=== PATIENT | female | born 1955 | race Caucasian/White ===

== ENCOUNTER 2018-10-14 16:51 | Emergency (ER) | payer OTHER ==
[2018-10-14] MEDS ORDERED: Potassium Chloride 20 MEQ Tab.ER PO ONE (18:30)
[2018-10-14] MEDS ORDERED: Lactated Ringers 1,000 ML IV SCH (18:30)
[2018-10-14] MEDS ORDERED: Alum Hydrox/Mag Hydrox/Simeth 30 ML, Lidocaine 2% 15 ML PO ONE ×2 (18:53)
--- NOTE | 2018-10-14 19:03 | EDM.PDOC ---
ED HPI GENERAL MEDICAL PROBLEM - General Chief Complaint: Abdominal Pain Stated Complaint: FEVER/ABDOMINAL PAIN Time Seen by Provider: 10/14/18 17:40 Source of Information: Reports: Patient History Limitations: Reports: No Limitations - History of Present Illness INITIAL COMMENTS - FREE TEXT/NARRATIVE: 63 yo F comes in today for epigastric pain off and on x 2 weeks and new development of low grade fever of 100.8 last night. She states she has never had anything like this before. She describes the pain as "50 lb pressure drilling into the back". She was seen in the ED yesterday in [place] for these same symptoms (no fever yet) where CT abdomen was negative for anything acute, cardiac workup was benign, labs were WNL and nothing acute was found. She does have a h/o Josh Fundoplication back in the late and has chronic acid reflux issues. She does have h/o cholecystectomy and appendectomy. She takes Nexium and recently increased dose to BID and PCP added Carafate with no relief. Her last endoscopy was 5 years ago. She denies any sick contacts. She has no other complaints at this time. 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 She recently went to [facility] for emergency preparedness education and denied eating any new or strange foods (sticks to embassy food), drinking unfiltered water, etc. She was on Malarone until 10/22/18. PCP is Dr. Marixa Cummings. She sees general surgeon Dr. Bennett in [place]. Upper Abdomen Pain Score (Numeric/FACES): 6 - Related Data Allergies Allergy/AdvReac Type Severity Reaction Status Date / Time acetaminophen [From Percocet] Allergy Hives Verified 10/14/18 17:22 cisapride [From Propulsid] Allergy Hives Verified 10/14/18 17:22 codeine Allergy Hives Verified 10/14/18 17:22 erythromycin base Allergy Hives Verified 10/14/18 17:22 Iodinated Contrast- Oral and Allergy Hives Verified 10/14/18 17:22 IV Dye nut - unspecified Allergy Hives Verified 10/14/18 17:22 oxycodone [From Percocet] Allergy Hives Verified 10/14/18 17:22 Penicillins Allergy Hives Verified 10/14/18 17:22 shellfish derived Allergy Anaphylactic Verified 10/14/18 17:22 Shock strawberry Allergy Hives Verified 10/14/18 17:22 Sulfa (Sulfonamide Allergy Hives Verified 10/14/18 17:22 Antibiotics) sulfur dioxide Allergy Hives Verified 05/11/18 22:28 Home Meds: Home Meds Albuterol Sulfate [Proair Hfa] 8.5 gm IH DAILY 05/11/18 [History] Aspirin [Halfprin] 81 mg PO DAILY 05/11/18 [History] Cholecalciferol (Vitamin D3) [Vitamin D3] 2,000 unit PO DAILY 05/11/18 [History] Escitalopram [Lexapro] 10 mg PO DAILY 05/11/18 [History] Esomeprazole [NexIUM] 40 mg PO BID 05/11/18 [History] Fluticasone/Salmeterol [Advair 100-50] 1 puff INH DAILY 05/11/18 [History] Metoprolol Succinate [Toprol XL] 1 tab PO DAILY 05/11/18 [History] Montelukast Sodium [Singulair] 5 mg PO DAILY 05/11/18 [History] Rosuvastatin [Crestor] 5 mg PO DAILY 05/11/18 [History] diphenhydrAMINE [Benadryl] 1 tab PO Q6HR PRN 05/11/18 [History] Cyclobenzaprine [Flexeril] 5 mg PO Q8HR PRN 10/14/18 [History] Sucralfate [Carafate] 1 dose PO QID 10/14/18 [History] Past Medical History HEENT History: Reports: Impaired Vision Cardiovascular History: Reports: Arrhythmia Respiratory History: Reports: Asthma Musculoskeletal History: Reports: Back Pain, Chronic Psychiatric History: Reports: Anxiety Social & Family History - Tobacco Use Smoking Status *Q: Never Smoker - Caffeine Use Caffeine Use: Reports: Soda - Recreational Drug Use Recreational Drug Use: No ED ROS GENERAL - Review of Systems Review Of Systems: ROS reveals no pertinent complaints other than HPI. ED EXAM, GI/ABD - Physical Exam Exam: See Below Exam Limited By: No Limitations General Appearance: Alert, WD/WN, No Apparent Distress Eyes: Bilateral: Normal Appearance, EOMI Ears: Normal External Exam, Hearing Grossly Normal Nose: Normal Inspection, Normal Mucosa, No Blood Throat/Mouth: Normal Inspection, Normal Lips, Normal Teeth, Normal Gums, Normal Oropharynx, Normal Voice, No Airway Compromise Head: Atraumatic, Normocephalic Neck: Normal Inspection, Supple, Non-Tender, Full Range of Motion Respiratory/Chest: No Respiratory Distress, Lungs Clear, Normal Breath Sounds, No Accessory Muscle Use, Chest Non-Tender Cardiovascular: Normal Peripheral Pulses, Regular Rate, Rhythm, No Edema, No Gallop, No JVD, No Murmur, No Rub GI/Abdominal Exam: Soft, Non-Tender, No Organomegaly, No Distention, No Abnormal Bruit, No Mass, Pelvis Stable, Abnormal Bowel Sounds (hyperactive) Back Exam: Normal Inspection Extremities: Normal Inspection, Normal Range of Motion, Non-Tender, Normal Capillary Refill, No Pedal Edema Psychiatric: Normal Affect, Normal Mood Skin Exam: Warm, Dry, Intact, Normal Color, No Rash Course - Vital Signs Last Recorded V/S: Last Vital Signs Temp 99.0 F 10/14/18 17:22 Pulse 98 10/14/18 17:22 Resp 12 10/14/18 17:22 BP 146/47 H 10/14/18 17:22 Pulse Ox 100 10/14/18 17:22 - Orders/Labs/Meds Orders: Active Orders 24 hr Category Date Time Status EKG Documentation Completion [RC] ASDIRECTED Care 10/14/18 18:36 Active CULTURE BLOOD [BC] Stat Lab 10/14/18 17:42 Received CULTURE BLOOD [BC] Stat Lab 10/14/18 17:48 Received Lactated Ringers [Ringers, Lactated] 1,000 ml Med 10/14/18 18:30 Active IV ASDIRECTED Blood Culture x2 Reflex Set [OM.PC] Stat Oth 10/14/18 17:29 Ordered EKG 12 Lead [EK] Stat Ther 10/14/18 18:36 Ordered Medication Orders Lactated Ringer's (Ringers, Lactated) 1,000 mls @ 999 mls/hr IV ASDIRECTED DEONNA Last Admin: 10/14/18 18:43 Dose: 999 mls/hr Labs: Laboratory Tests 10/14/18 10/14/18 10/14/18 Range/Units 17:42 17:42 17:42 WBC 4.16 (3.98-10.04) K/mm3 RBC 4.27 (3.98-5.22) M/mm3 Hgb 12.7 (11.2-15.7) gm/L Hct 39.4 (34.1-44.9) % MCV 92.3 (79.4-94.8) fl MCH 29.7 (25.6-32.2) pg MCHC 32.2 (32.2-35.5) g/dl RDW Std Deviation 44.5 (36.4-46.3) fL Plt Count 223 (182-369) K/mm3 MPV 9.7 (9.4-12.3) fl Neut % (Auto) 66.5 (34.0-71.1) % Lymph % (Auto) 18.8 L (19.3-51.7) % Gilchrist % (Auto) 13.5 H (4.7-12.5) % Eos % (Auto) 1.0 (0.7-5.8) Baso % (Auto) 0.2 (0.1-1.2) % Neut # (Auto) 2.77 (1.56-6.13) K/mm3 Lymph # (Auto) 0.78 L (1.18-3.74) K/mm3 Gilchrist # (Auto) 0.56 H (0.24-0.36) K/mm3 Eos # (Auto) 0.04 (0.04-0.36) K/mm3 Baso # (Auto) 0.01 (0.01-0.08) K/mm3 Sodium 140 (136-145) mEq/L Potassium 3.0 L (3.5-5.1) mEq/L Chloride 104 (98-107) mEq/L Carbon Dioxide 29 (21-32) mEq/L Anion Gap 10.0 (5-15) BUN 5 L (7-18) mg/dL Creatinine 1.0 (0.55-1.02) mg/dL Est Cr Clr Drug Dosing 50.37 mL/min Estimated GFR (MDRD) 56 (>60) mL/min BUN/Creatinine Ratio 5.0 L (14-18) Glucose 114 (80-115) mg/dL Lactic Acid 1.3 (0.4-2.0) mmol/L Calcium 8.7 (8.5-10.1) mg/dL Total Bilirubin 0.1 L (0.2-1.0) mg/dL AST 28 (15-37) U/L ALT 47 (14-59) U/L Alkaline Phosphatase 134 H (46-116) U/L C-Reactive Protein 3.1 H* (<1.0) mg/dL Total Protein 6.6 (6.4-8.2) g/dl Albumin 3.2 L (3.4-5.0) g/dl Globulin 3.4 gm/dL Albumin/Globulin Ratio 0.9 L (1-2) Meds: Medications Generic Name Dose Route Start Last Admin Trade Name Freq PRN Reason Stop Dose Admin Lactated Ringer's 1,000 mls @ 999 mls/hr 10/14/18 18:30 10/14/18 18:43 Ringers, Lactated IV 999 mls/hr ASDIRECTED DEONNA Administration Discontinued Medications Generic Name Dose Route Start Last Admin Trade Name Freq PRN Reason Stop Dose Admin Potassium Chloride 40 meq 10/14/18 18:30 10/14/18 18:44 Klor-Con M20 PO 10/14/18 18:31 40 meq ONETIME ONE Administration - Re-Assessments/Exams Free Text/Narrative Re-Assessment/Exam: 10/14/18 17:42 CBC, CMP, CRP, LA, Blood cultures ordered 10/14/18 18:36 EKG ordered CBC WNL CMP shows K 3, Alk Phos 134 CRP 3.1 LA 1.3 She also looks dry on exam. Will start IV Lactated Ringers and give oral Potassium replacement. 10/14/18 19:08 EKG reviewed my myself and Dr. Salazar, WNL. At this time, there doesn't seem to be an infectious process happening or acute emergency. It seems reasonable at this time to go ahead and send the pt home and have her f/u with PCP and GI or General Surgeon for endoscopy. Pt agrees with this plan. Departure - Departure Time of Disposition: 19:11 Disposition: Home, Self-Care 01 Condition: Fair Clinical Impression: Abdominal pain, Low grade fever, Hypokalemia - Discharge Information *PRESCRIPTION DRUG MONITORING PROGRAM REVIEWED*: Not Applicable *COPY OF PRESCRIPTION DRUG MONITORING REPORT IN PATIENT OLIVER: Not Applicable Instructions: Abdominal Pain, Adult, [id number], Fever, Adult, [id number] Referrals: Marixa Cummings MD [Primary Care Provider] - Additional Instructions: You were seen in the ED today for abdominal pain x 2 weeks with new onset low grade fever. Your labs and EKG were unremarkable except for low potassium. Do not suspect infection or emergent condition at this time. You were given IV fluids and potassium replacement while here. Also recommend staying hydrated at home with water, gatorade or pedialyte. Continue taking your Nexium and carafate and staying on a bland diet. Recommend follow up with your primary care provider and suggest seeing a GI specialist or your general surgeron Dr. Bennett for endoscopy to rule out any ulcer. Please return to ED if new or worsening symptoms. - My Orders Last 24 Hours: My Active Orders 10/14/18 18:30 Lactated Ringers [Ringers, Lactated] 1,000 ml IV ASDIRECTED 10/14/18 18:36 EKG Documentation Completion [RC] ASDIRECTED EKG 12 Lead [EK] Stat - Assessment/Plan Last 24 Hours: My Active Orders 10/14/18 18:30 Lactated Ringers [Ringers, Lactated] 1,000 ml IV ASDIRECTED 10/14/18 18:36 EKG Documentation Completion [RC] ASDIRECTED EKG 12 Lead [EK] Stat
== END 2018-10-14 19:28 | disposition home or self-care (01) ==
LOC: JD.ED 16:51
DX: R10.10 Upper abdominal pain, unspecified (principal); R50.9 Fever, unspecified; E87.6 Hypokalemia; Z88.8 Allergy status to other drugs, medicaments and biological substances; Z88.2 Allergy status to sulfonamides; Z91.018 Allergy to other foods; Z79.82 Long term (current) use of aspirin; Z79.899 Other long term (current) drug therapy
CPT/HCPCS: 36415; 80053; 83605; 85025; 86140; 87040; 93005; 96360; 99284; A9270; J7120; 93010

== ENCOUNTER 2022-01-18 03:05 | Emergency (ER) | payer OTHER ==
[2022-01-18] MEDS ORDERED: Sodium Chloride 0.9% 1,000 ML IV ONE (04:15)
[2022-01-18] MEDS ORDERED: Metoclopramide 10 MG/2 ML SDV IVPUSH STA (04:15)
[2022-01-18 05:03] LABS: ESTIMATED GFR 63 mL/min (>60)
== END 2022-01-18 06:53 | disposition home or self-care (01) ==
LOC: JD.ED 03:05
DX: R11.2 Nausea with vomiting, unspecified (principal); E78.00 Pure hypercholesterolemia, unspecified; K21.9 Gastro-esophageal reflux disease without esophagitis; Z91.041 Radiographic dye allergy status; Z91.018 Allergy to other foods; Z88.2 Allergy status to sulfonamides; Z88.0 Allergy status to penicillin; Z88.5 Allergy status to narcotic agent; Z88.8 Allergy status to other drugs, medicaments and biological substances; Z79.82 Long term (current) use of aspirin; Z79.899 Other long term (current) drug therapy
CPT/HCPCS: 36415; 80053; 83735; 85025; 96361; 96374; 99284; J2765; J7030; 99283

== ENCOUNTER 2022-05-25 01:30 | Emergency (ER) | payer OTHER ==
[2022-05-25] MEDS ORDERED: Ondansetron 4 MG Tab.DIS PO ONE (02:44)
== END 2022-05-25 03:04 | disposition home or self-care (01) ==
LOC: JD.ED 01:30
DX: H81.10 Benign paroxysmal vertigo, unspecified ear (principal); J45.909 Unspecified asthma, uncomplicated; E78.00 Pure hypercholesterolemia, unspecified; Z88.6 Allergy status to analgesic agent; Z88.5 Allergy status to narcotic agent; Z88.1 Allergy status to other antibiotic agents; Z91.041 Radiographic dye allergy status; Z91.018 Allergy to other foods; Z88.0 Allergy status to penicillin; Z91.013 Allergy to seafood; Z88.2 Allergy status to sulfonamides; Z79.899 Other long term (current) drug therapy; Z79.82 Long term (current) use of aspirin; Z90.49 Acquired absence of other specified parts of digestive tract; Z90.710 Acquired absence of both cervix and uterus
CPT/HCPCS: 93005; 99284; A9270

== ENCOUNTER 2024-03-08 04:56 | Emergency (ER) | payer OTHER ==
[2024-03-08 06:07] LABS: BASOPHILS ABSOLUTE AUTO 0.1 K/mm3 (0.0-0.2); BASOPHILS PERCENT AUTO 1.2 % (0.0-1.0); EOSINOPHILS ABSOLUTE AUTO 0.3 K/mm3 (0.0-0.4); EOSINOPHILS PERCENT AUTO 5.2 % (0.0-6.0); HEMATOCRIT 40.4 % (37.0-47.0); HEMOGLOBIN 13.8 gm/dl (12.0-16.0); IMMATURE GRAN ABSOLUTE AUTO 0.01 K/mm3 (0.00-0.05); IMMATURE GRAN PERCENT AUTO 0.2 % (0.0-0.4); LYMPHOCYTES ABSOLUTE AUTO 1.7 K/mm3 (1.0-4.8); LYMPHOCYTES PERCENT AUTO 31.9 % (24.0-44.0); MEAN CORPUSCULAR HEMOGLOBIN 32.3 pg (28.0-32.0); MEAN CORPUSCULAR HGB CONC 34.2 g/dl (32.0-36.0); MEAN CORPUSCULAR VOLUME 94.6 fl (83.0-99.0); MONOCYTES ABSOLUTE AUTO 0.5 K/mm3 (0.0-0.8); MONOCYTES PERCENT AUTO 9.7 % (0.0-8.0); NEUTROPHILS ABSOLUTE AUTO 2.7 K/mm3 (1.8-7.7); NEUTROPHILS PERCENT AUTO 51.8 % (41.0-71.0); PLATELET COUNT,PLT 318 K/mm3 (150-400); RED BLOOD CELL COUNT 4.27 M/mm3 (4.10-5.30); WHITE BLOOD CELL COUNT,WBC 5.18 K/mm3 (3.9-11.3)
[2024-03-08 06:17] LABS: A/G RATIO 1.1 (1-2); ALANINE AMINOTRANSFERASE,ALT 42 U/L (14-59); ALBUMIN 3.5 g/dl (3.4-5.0); ALKALINE PHOSPHATASE 104 U/L (46-116); BILIRUBIN TOTAL 0.5 mg/dL (0.2-1.0); BLOOD UREA NITROGEN,BUN 11 mg/dL (7-18); CALCIUM 9.1 mg/dL (8.5-10.1); CARBON DIOXIDE,CO2 26 mEq/L (21-32); CHLORIDE,CL 103 mEq/L (98-107); EST CRCL DRUG DOSING (CG) 47.14 mL/min; ESTIMATED GFR 62 mL/min (>60); GLUCOSE RANDOM 106 mg/dL (70-99); MAGNESIUM 1.8 mg/dL (1.8-2.4); PROTEIN TOTAL,TP 6.8 g/dl (6.4-8.2); SODIUM,NA 139 mEq/L (136-145); TSH 2.333 uIU/mL (0.358-3.74)
[2024-03-08 06:19] LABS: TROPONIN I HIGH SENSITIVITY < 4 pg/mL (<=51)
[2024-03-08 06:20] LABS: ASPARTATE AMNIOTRANSFERASE,AST 30 U/L (15-37)
== END 2024-03-08 08:02 | disposition home or self-care (01) ==
LOC: JD.ED 04:56
DX: I49.3 Ventricular premature depolarization (principal); E78.00 Pure hypercholesterolemia, unspecified; K21.9 Gastro-esophageal reflux disease without esophagitis; Z90.49 Acquired absence of other specified parts of digestive tract; Z90.710 Acquired absence of both cervix and uterus; Z79.899 Other long term (current) drug therapy; Z79.82 Long term (current) use of aspirin; Z88.5 Allergy status to narcotic agent; Z88.6 Allergy status to analgesic agent; Z88.0 Allergy status to penicillin; Z88.2 Allergy status to sulfonamides; Z88.1 Allergy status to other antibiotic agents; Z91.018 Allergy to other foods; Z91.013 Allergy to seafood; Z91.048 Other nonmedicinal substance allergy status; Z91.041 Radiographic dye allergy status
CPT/HCPCS: 36415; 71045; 71045-26; 80053; 83735; 83880; 84443; 84484; 85025; 86140; 93005; 93010; 99283; 99285

== ENCOUNTER 2024-06-28 11:56 | Emergency (ER) | payer OTHER ==
[2024-06-28] MEDS: Ketorolac 60 MG/2 ML SDV IM ONE (13:48)
== END 2024-06-28 14:06 | disposition home or self-care (01) ==
LOC: JD.ED 11:56
DX: S52.121A Displaced fracture of head of right radius, initial encounter for closed fracture (principal); E78.00 Pure hypercholesterolemia, unspecified; J45.909 Unspecified asthma, uncomplicated; Z90.49 Acquired absence of other specified parts of digestive tract; Z90.710 Acquired absence of both cervix and uterus; Z79.82 Long term (current) use of aspirin; Z79.899 Other long term (current) drug therapy; Z88.2 Allergy status to sulfonamides; Z88.8 Allergy status to other drugs, medicaments and biological substances; Z91.018 Allergy to other foods; Z91.013 Allergy to seafood; Z88.0 Allergy status to penicillin; Z88.5 Allergy status to narcotic agent; W19.XXXA Unspecified fall, initial encounter
CPT/HCPCS: 73080; 96372; 99283; J1885; 99284

== ENCOUNTER 2024-06-29 13:24 | Emergency (ER) | payer OTHER ==
[2024-06-29] MEDS: Ketorolac 60 MG/2 ML SDV IM ONE (14:20)
== END 2024-06-29 14:23 | disposition home or self-care (01) ==
LOC: JD.ED 13:24
DX: S52.121D Displaced fracture of head of right radius, subsequent encounter for closed fracture with routine healing (principal); J45.909 Unspecified asthma, uncomplicated; E78.00 Pure hypercholesterolemia, unspecified; K21.9 Gastro-esophageal reflux disease without esophagitis; Z90.49 Acquired absence of other specified parts of digestive tract; Z90.710 Acquired absence of both cervix and uterus; Z88.0 Allergy status to penicillin; Z88.1 Allergy status to other antibiotic agents; Z88.2 Allergy status to sulfonamides; Z88.5 Allergy status to narcotic agent; Z88.8 Allergy status to other drugs, medicaments and biological substances; Z91.013 Allergy to seafood; Z91.041 Radiographic dye allergy status; Z91.018 Allergy to other foods; Z79.82 Long term (current) use of aspirin; Z79.899 Other long term (current) drug therapy; W19.XXXD Unspecified fall, subsequent encounter
CPT/HCPCS: 29105; 96372; 99283; J1885